=== PATIENT | male | born 1985 | race Caucasian/White ===

== ENCOUNTER 2018-04-04 10:21 | Emergency (ER) | payer MEDICAID, SELFPAY ==
[~2018-04-04] VITALS: Ht 175.3 cm; Wt 65.9 kg
[~2018-04-04 10:21] MED LIST: CIPR-278 PO; FLUC100T PO; METR500T PO; TRAM50TA4 PO
[2018-04-04] MEDS ORDERED: HYPERTENSION PO (10:53)
[2018-04-04 13:29] VITALS: BP 155/99
== END 2018-04-04 13:41 | disposition home or self-care (01) ==
LOC: EMS 10:22
DX: R10.31 Right lower quadrant pain (principal); R11.0 Nausea; R14.1 Gas pain; F12.90 Cannabis use, unspecified, uncomplicated

== ENCOUNTER 2019-01-27 15:44 | Emergency (ER) | payer SELFPAY ==
[~2019-01-27 15:44] MED LIST changes: -CIPR-278 PO; -FLUC100T PO; +HYPERTENSION PO; -METR500T PO; -TRAM50TA4 PO
== END 2019-01-27 17:00 | disposition left against medical advice (07) ==
LOC: EMS 15:46
DX: Z53.21 Procedure and treatment not carried out due to patient leaving prior to being seen by health care provider (principal)

== ENCOUNTER 2020-11-02 11:22 | Emergency (ER) | payer SELFPAY ==
[~2020-11-02] VITALS: Ht 177.8 cm; Wt 65.9 kg
[2020-11-02 11:54] LABS: BASOPHILS % (AUTO) 0.3 % (0.0-2.0); EOSINOPHILS % (AUTO) 0.5 % (1.0-6.0); HEMATOCRIT 42.5 % (41-53); HEMOGLOBIN 14.1 g/dL (13.5-17.5); LYMPHOCYTES # (AUTO) 1.6 K/uL (1.0-4.8); MEAN CORPUSCULAR HEMOGLOBIN 31.1 pg (26.0-34.0); MEAN CORPUSCULAR HGB CONC 33.1 G/dL (31.0-37.0); MEAN CORPUSCULAR VOLUME 94 fL (80-100); MONOCYTES # (AUTO) 0.4 K/uL (0.1-1.0); MONOCYTES % (AUTO) 5.7 % (2.0-9.0); NEUTROPHILS # (AUTO) 5.5 K/uL (1.8-7.7); NEUTROPHILS % (AUTO) 72.5 % (40.0-70.0); PLATELET COUNT (AUTO) 345 K/uL (150-450); RED BLOOD CELL COUNT(AUTO) 4.53 MIL/uL (4.50-5.90); RED CELL DISTRIBUTION WIDTH 13.2 % (11.5-14.5)
[2020-11-02 12:04] LABS: ANION GAP 7 mmol/L (8-16); CALCIUM, TOTAL 8.8 mg/dL (8.8-10.5); CARBON DIOXIDE 30 mmol/L (22-29); CHLORIDE 102 mmol/L (98-107); CREATININE 0.95 mg/dL (0.60-1.30); GLOMERULAR FILTR. RATE CALC > 60 mL/min (>60); GLUCOSE,RANDOM 111 mg/dL (70-110); POTASSIUM 4.2 mmol/L (3.5-5.1); SODIUM SERUM 139 mmol/L (136-145); UREA NITROGEN, BLOOD 11 mg/dL (7-18)
[2020-11-02 12:10] LABS: ALANINE AMINOTRANSFERASE 33 U/L (12-78); ALBUMIN 3.4 g/dL (3.4-5.0); ALKALINE PHOSPHATASE 120 U/L (46-116); ASPARTATE AMINOTRANSFERASE 28 U/L (15-37); BILIRUBIN,TOTAL 0.3 mg/dL (0.1-1.0); TOTAL PROTEIN, SERUM 7.4 g/dL (6.4-8.2)
[2020-11-02] MEDS ORDERED: HydrOXYzine PAMOATE 50 MG CAPSULE PO ONE (12:30)
[2020-11-02 16:00] VITALS: BP 138/89
== END 2020-11-02 16:23 | disposition home or self-care (01) ==
LOC: EMS 11:25
DX: F15.10 Other stimulant abuse, uncomplicated (principal); F32.9 Major depressive disorder, single episode, unspecified
CPT/HCPCS: 36415; 80053; 85025; 99283; G0480